=== PATIENT | male | born 1995 | race Hispanic/Latino ===

== ENCOUNTER 2022-10-21 20:25 | Emergency (ER) | payer SELFPAY ==
[2022-10-21] MEDS ORDERED: Ondansetron ODT 4 MG TAB ONE (21:40)
== END 2022-10-22 00:34 | disposition home or self-care (01) ==
LOC: ERS 20:25
DX: R51.9 Headache, unspecified (principal)
CPT/HCPCS: 36415; 71045; 84443; 93005; Q0162